=== PATIENT | male | born 1955 | race Caucasian/White ===

== ENCOUNTER 2017-01-24 20:24 | Outpatient (CLI) | payer OTHER ==
[2017-01-24 18:32] LABS: CALCIUM 9.4 mg/dL (8.5-10.3); CREATININE 1.5 mg/dL (0.6-1.2); POTASSIUM 4.6 mmol/L (3.5-5.0)
[2017-01-24 20:00] LABS: HEMOGLOBIN A1C 0.82 g/dL
== END 2017-01-24 20:25 | disposition home or self-care (01) ==
LOC: LAB.S 20:24
PROVIDERS: ATTEND Family Medicine
DX: I12.9 Hypertensive chronic kidney disease with stage 1 through stage 4 chronic kidney disease, or unspecified chronic kidney disease (principal)
CPT/HCPCS: 36415; 80048; 83036

== ENCOUNTER 2017-05-11 09:44 | Outpatient (CLI) | payer OTHER ==
[2017-05-11 19:21] LABS: CALCIUM 9.4 mg/dL (8.5-10.3); CREATININE 1.4 mg/dL (0.6-1.2); POTASSIUM 4.5 mmol/L (3.5-5.0)
[2017-05-11 19:26] LABS: HEMOGLOBIN A1C 0.79 g/dL
== END 2017-05-11 09:45 | disposition home or self-care (01) ==
LOC: LAB.F 09:44
PROVIDERS: ATTEND Family Medicine
DX: I12.9 Hypertensive chronic kidney disease with stage 1 through stage 4 chronic kidney disease, or unspecified chronic kidney disease (principal); N18.9 Chronic kidney disease, unspecified; E11.9 Type 2 diabetes mellitus without complications
CPT/HCPCS: 36415; 80048; 82043; 83036

== ENCOUNTER 2017-08-22 08:00 | Outpatient (CLI) | payer OTHER ==
[2017-08-22 18:01] LABS: HB2 TOTAL 16.1 g/dL; HEMOGLOBIN A1C 0.69 g/dL; HEMOGLOBIN A1C % 6.1 % (4.6-6.2)
[2017-08-22 18:17] LABS: BUN - BLOOD UREA NITROGEN 27 mg/dL (6-20); CALCIUM 9.7 mg/dL (8.5-10.3); CARBON DIOXIDE - CO2 27 mmol/L (21-32); CHLORIDE 104 mmol/L (101-111); CHOL/HDL RATIO 4.3 (<5.0); CHOLESTEROL 130 mg/dL; CREATININE 1.3 mg/dL (0.6-1.2); GFR - MDRD 56 (>89); GLUCOSE 107 mg/dL (70-100); HDL CHOLESTEROL 30 mg/dL; LDL CHOLESTEROL,CALCULATED 38 mg/dL; LDL/HDL RATIO 1.3 (<3.6); SODIUM 138 mmol/L (135-145); VLDL CHOLESTEROL 62 mg/dL
== END 2017-08-22 08:01 | disposition home or self-care (01) ==
LOC: LAB.S 08:00
PROVIDERS: ATTEND Family Medicine
DX: L25.9 Unspecified contact dermatitis, unspecified cause (principal); E78.5 Hyperlipidemia, unspecified; I12.9 Hypertensive chronic kidney disease with stage 1 through stage 4 chronic kidney disease, or unspecified chronic kidney disease; N18.9 Chronic kidney disease, unspecified; E11.9 Type 2 diabetes mellitus without complications
CPT/HCPCS: 36415; 80048; 80061; 83036; 83721

== ENCOUNTER 2017-12-05 15:01 | Outpatient (CLI) | payer OTHER ==
[2017-12-05 17:36] LABS: CALCIUM 9.7 mg/dL (8.5-10.3); CREATININE 1.4 mg/dL (0.6-1.2)
[2017-12-05 19:19] LABS: HB2 TOTAL 16.3 g/dL; HEMOGLOBIN A1C 0.72 g/dL; HEMOGLOBIN A1C % 6.2 % (4.6-6.2)
== END 2017-12-05 15:02 | disposition home or self-care (01) ==
LOC: LAB.S 15:01
PROVIDERS: ATTEND Family Medicine
DX: I12.9 Hypertensive chronic kidney disease with stage 1 through stage 4 chronic kidney disease, or unspecified chronic kidney disease (principal); E11.9 Type 2 diabetes mellitus without complications
CPT/HCPCS: 36415; 80048; 83036

== ENCOUNTER 2020-01-16 13:45 | Emergency (ER) | payer OTHER ==
[2020-01-16] MEDS ORDERED: HYDROcod/ACETAM 5/325 MG TABLET PO STA (14:17)
--- NOTE | 2020-01-16 14:20 | ED Physician Documentation ---
History of Present Illness - Stated complaint Stated Complaint: R PINKY INJ - Chief complaint Chief Complaint: Ext Problem - Additonal information Additional information: 64-year-old right-handed male presents to the emergency department for evaluation of obviously dislocated right small finger. He fell this afternoon onto an extended pinky. The pinky was deviated laterally at the PIP. Denies any loss of consciousness or head injury. On initial exam the pinky is obviously dislocated at the PIP laterally. The patient did allow me to pull the finger into alignment. An x-ray is pending. Cap refill is brisk, able to slightly flex and extend once alligned Review of Systems Constitutional: denies: Fever, Chills Nose: denies: Rhinorrhea / runny nose, Foreign Body Throat: denies: Dental pain / toothache Cardiac: denies: Chest pain / pressure, Palpitations Respiratory: denies: Dyspnea, Cough GI: denies: Abdominal Pain Skin: denies: Rash, Lesions Musculoskeletal: reports: Joint pain (right small finger) PD PAST MEDICAL HISTORY - Past Medical History Cardiovascular: High cholesterol Endocrine/Autoimmune: Type 2 diabetes - Present Medications Home Medications: Ambulatory Orders Medication Instructions Recorded Confirmed Aspirin [Aspir 81] 81 mg PO DAILY 08/09/14 08/09/14 Atorvastatin [Lipitor] 20 mg PO QDBREAKFAST 08/09/14 08/09/14 Glyburide 10 mg PO QDBREAKFAST 08/09/14 08/09/14 Insulin NPH Human Isophane 36 unit SQ QPM 08/09/14 08/09/14 [Humulin N] Multivitamin W/Minerals [Theragran 1 tab PO DAILY 08/09/14 08/09/14 M] - Allergies Allergies/Adverse Reactions: Allergies Allergy/AdvReac Type Severity Reaction Status Date / Time latex Allergy Rash Verified 01/16/20 13:59 Penicillins Allergy Rash Verified 01/16/20 13:59 Sulfa (Sulfonamide Allergy Rash Verified 01/16/20 13:59 Antibiotics) - Social History Smoking Status: Never smoker Results - Vitals Vitals: Vital Signs - 24 hr 01/16/20 13:59 Temperature 36.8 C Heart Rate 73 Respiratory 16 Rate Blood Pressure 167/94 H O2 Saturation 98 Oxygen O2 Source Room air - Rads (name of study) right fingers Radiology: Final report received (No visualized acute fracture or dislocation. However occult injury cannot be excluded. Recommend interval follow-up imaging in 7 to 10 days) Procedures - Reduction Body part reduced: Right, Finger Fracture or dislocation: Dislocation Shoulder reduction technique: Traction - counter tract Reduction aftercare: NV intact, Xray confirms reduction, Alignment improved, Splint applied, Patient tolerated well (finger grossly angulated at the PIP. Using gentle distal traction and holding proximal digit at the MCP, finger placed into anatomic allignment. Xray pending) PD MEDICAL DECISION MAKING - ED course Complexity details: reviewed results, considered differential, d/w patient, d/w family ED course: 64-year-old male presented to the emergency department with acute deformity of the right small finger after a fall forward. It was dislocated at the PIP. This provider was able to pull it straight into alignment. An x-ray did not show any obvious fracture. Following the reduction the patient was then moving his finger normally and he had intact sensation and a brisk cap refill. I have placed the finger in aluminum splint and advised that he take ibuprofen or Tylen ol for pain over the next week. If not markedly better he should proceed with a second imaging to rule out an occult fracture. Departure - Departure Disposition: 01 Home, Self Care Clinical Impression: Dislocation, finger closed Qualifiers: Encounter type: initial encounter Qualified Code(s): S63.259A - Unspecified dislocation of unspecified finger, initial encounter Condition: Stable Instructions: ED Dislocation Finger Ch Comments: Renato the x-ray of your finger did not show anything broken. It is likely that this was simply dislocated and now it has been pulled back into an alignment. I would like you to wear the splint throughout the day and take ibuprofen or Tylenol at home for pain. If you find that your pain is not markedly better in 7 to 10 days please have the finger re-x-rayed to make sure that a subtle or small fracture was not missed
--- NOTE | 2020-01-16 14:42 | XRAY Report ---
PROCEDURE: Finger(s) RT INDICATIONS: eval for fracture; was dislocated at PIP TECHNIQUE: AP hand, 3 views of the 5th finger(s) acquired. COMPARISON: none FINDINGS: Bones: No fractures or dislocations. No suspicious bony lesions. Soft tissues: No suspicious soft tissue calcifications. IMPRESSION: No visualized acute fracture or dislocation. However, occult injury cannot be excluded. Recommend sayra rt interval imaging follow-up in 7-10 days as clinically indicated for additional evaluation. Reviewed by: Mable Nelson MD on 01/16/2020 2:41 PM PDT Approved by: Mable Nelson MD on 01/16/2020 2:41 PM PDT Station ID: [id number]
[2020-01-16 15:27] VITALS: BP 175/78
== END 2020-01-16 15:27 | disposition home or self-care (01) ==
LOC: ED 13:45
DX: S63.286A Dislocation of proximal interphalangeal joint of right little finger, initial encounter (principal); W01.0XXA Fall on same level from slipping, tripping and stumbling without subsequent striking against object, initial encounter; E11.9 Type 2 diabetes mellitus without complications; Z79.4 Long term (current) use of insulin
CPT/HCPCS: 26755; 73140; 99282; 99283; A9270